=== PATIENT | male | born 1930 | race Caucasian/White ===

== ENCOUNTER 2016-12-09 17:01 | Inpatient (IN) | payer MEDICARE, OTHER ==
--- NOTE | ~2016-12-09 | HP ---
History And Physical [place] [id number] [place]. [address] NAME: KORY NAZARIO JR : 30 STATUS : ADM Sarai PAT#: [id number] AGE: 86 ADM/REG DATE : 12/09/16 MR#: [id number] REPORT SERV DATE: 12/10/16 DICTATED BY: KATHYA SOLIS DATE: 12/10/16 REPORT STATUS : Draft TRANSCRIBED BY: MODL DATE: 12/10/16 DATE OF ADMISSION: 12/09/2016 ADDENDUM: The patient was hospitalized and admitted for dementia and hypoglycemia, but I was called just before midnight on 12/09/2016 regarding increasing hypotension and tachycardia, tachypnea, and hypoxia. I went to evaluate the patient and examined. The patient was diaphoretic, in distress because of rapid heart rate and rapid respiratory rate and had a blood pressure of 73/40. On reviewing medical records, it was clear that there were many abnormalities, including a white blood cell count of 13.4 and a lactic acid of 4.9. I reviewed the chest x-ray and it showed diffuse bilateral infiltrates, but with a normal brain natriuretic peptide of 26. The patient had an active cough with short of breath. There was a possible aspiration event? I spent considerable time discussing the presentation and health with the patient's and the patient himself. The abdomen was quite soft and without significant distention. Definitely, no rebound or guarding. He had been hospitalized recently for evaluation of possible small bowel obstruction apparently. ASSESSMENT AND PLAN: I believe the patient has evidence of severe sepsis with shock secondary to pneumonia, lactic acid of 4.9, blood pressure 73/40, respiratory rate is 36, O2 saturation did drop to 86% on room air, pulse of 107, white blood cell count of 13.4. Because he was recently hospitalized, this should be considered a facility acquired pneumonia or possibly aspiration pneumonia? Therefore, I have moved the patient to a full liquid status on the telemetry floor. We will place on IV fluid boluses, broad empiric IV antibiotics, including cefepime and IV vancomycin. I discussed the case at the bedside with Dr. Brandon, critical care physician. The patient initially responded to 500 mL bolus of normal saline with a blood pressure of 92/60, corresponding to a reasonable mean arterial pressure and certainly, the patient continues to respond in terms of lactic acid of clinical status and blood pressure. Will be okay to monitor on the floor with a low threshold for transfer to the ICU. Also, it should be noted that we did discuss code status as initially I had heard the patient was a complete DNR, but it is clear that the patient is okay to be intubated if necessary and okay to have pressors for septic shock treatment if necessary, and he and his are still wondering if CPR should be given in certain situations? A total of 40 minutes was spent in critical care time evaluating the patient and management. TOYN/ISABEL Kathya Solis M.D. History And Physical [address] [address] NAME: KORY NAZARIO OFELIA MORFIN : 30 STATUS : ADM Sarai PAT#: [id number] AGE: 86 ADM/REG DATE : 12/09/16 MR#: [id number] REPORT SERV DATE: 12/10/16 DICTATED BY: KATHYA SOLIS DATE: 12/10/16 REPORT STATUS : Draft TRANSCRIBED BY: ISABEL DATE: 12/10/16 / [id number] CC: Gus Valdez M.D.
--- NOTE | ~2016-12-09 | DS ---
Discharge Summary [facility] [address] [place]. [address] NAME: KORY NAZARIO JR : 30 STATUS : DIS IN PAT#: [id number] AGE: 86 ADM/REG DATE : 12/10/16 MR#: [id number] REPORT SERV DATE: 12/16/16 DICTATED BY: VIRI ROMO DATE: 12/15/16 REPORT STATUS : Draft TRANSCRIBED BY: MODL DATE: 12/15/16 ADMISSION DATE: 12/10/2016 DISCHARGE DATE: 12/15/2016 DIAGNOSES OF DISCHARGE: 1. Bilateral pneumonia, possible aspiration, improving. 2. Hypoxic respiratory failure. 3. Encephalopathy likely toxic or metabolic. 4. Dementia. 5. 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 6. Sepsis on admission, resolved. 7. Leukocytosis on admission likely secondary to infection and reactive. No sign of progression of his myelodysplastic syndrome to acute myelogenous leukemia. 8. Myelodysplastic syndrome with anemia. 9. Recent small-bowel obstruction. 10.Weakness and debility. CONSULTANTS ON THE CASE: Dr. Amari Mckeon M.D., Oncology. PROCEDURES DONE DURING THIS HOSPITALIZATION: None. TEST DONE DURING THIS HOSPITALIZATION: Include MRI of the brain without contrast performed on 12/13/2016 showing involutional and chronic ischemic changes, but no acute findings on the MRI of the brain. His chest x-ray portable, on December 09, showed bilateral infiltrates with possible airspace process, and mild volume overload. Spine lumbar x-ray showed no acute abnormalities of the lumbar spine, just disc space narrowing at L5-S1. Repeat chest x ray, PA and lateral, shows improved of the infiltrates. The patient cardiac enzymes have remained negative at discharge. His a procalcitonin level was less than 0.05 on December 09. His BNP was 26.3, his hemoglobin A1c 6.8, lactate was 3 on admission. His white count on admission was 5.7 thousand at discharge. His UA on 12/09/2016 has been negative. His blood cultures have remained negative at discharge. HOSPITAL COURSE: This is a very pleasant 86-year-old gentleman patient of Dr. Tai, his primary care provider that he has been presenting to [facility] and admitted on 12/10/2016 after he has been found on the floor by his with apparently hypoglycemic spelling event at home. The patient according to the daughter he does have some dementia at his baseline and he has been recently discharged from [facility] according to her for a small bowel obstruction treated conservatively. The patient has been brought to [facility] Emergency Room where initial evaluation has shown some bilateral infiltrates and fairly significant leukocytosis. For further details, please see history and physical of Dr. Ryan Knott. The patient has been started on broad-spectrum antibiotics with Maxipime and vancomycin. His insulin regiment has been readjusted significantly to prevent farther hypoglycemic episodes. He has been ruled out for MO as well by serial cardiac enzymes, serial EKGs. The patient's white count has increased significantly on 12/10/2016 to 50,000 due to his history of myelodysplastic syndrome, for which he is followed by Dr. Mckeon. He has been consulted for his leukocytosis, probably leukocytosis has been Discharge Summary [address] [address] NAME: KORY NAZARIO : 30 STATUS : DIS IN PAT#: [id number] AGE: 86 ADM/REG DATE : 12/10/16 MR#: [id number] REPORT SERV DATE: 12/16/16 DICTATED BY: VIRI ROMO DATE: 12/15/16 REPORT STATUS : Draft TRANSCRIBED BY: ISABEL DATE: 12/15/16 related to his pneumonia with neutrophil predominance, and some reactive with the leukemoid reaction, but there were no evidence of any progression of disease to AML. After aggressive antibiotic treatment, aggressive pulmonary treatment, his leukocytosis started to improve significantly and actually resolved. The patient has been extremely weak and debilitated, and physical therapy eval and treat has been requested. Regarding his encephalopathy likely that has been toxic or metabolic on an underlying history of dementia, he underwent an MRI of the brain, which did show no acute events, this is encephalopathy improved slowly, but progressively and after being evaluated by Physical therapy Inpatient rehab has been recommended for the patient. The patient has been evaluated by [facility] for inpatient rehab and he has been ready for discharge for inpatient rehab at [facility] on 12/15/2016. MEDICATIONS AT DISCHARGE: Would include vitamin C 500 mg p.o. daily, Colace 100 b.i.d., iron fumarate 325 mg p.o. every morning, insulin sliding scale level 2, ketoconazole shampoo, Synthroid 25 mcg p.o. daily, melatonin 6 mg at bedtime, MiraLAX 1 packet p.o. daily, Pravachol 10 mg at bedtime, albuterol Atrovent nebulizers q.4 hours while awake, Levemir 10 units subcutaneously daily, Tylenol p.r.n., Dulcolax p.r.n., [place] 5/325 one tablet p.o. q.4 hours p.r.n., hydrocortisone cream p.r.n., montelukast p.r.n., Senokot p.r.n., Zofran p.r.n. Also Lasix 20-40 mg p.o. daily p.r.n. for fluid retention and Aranesp as administered by Dr. Mckeon every 90 days and Augmentin 875 mg p.o. b.i.d. for seven more days. The patient has been advised to follow up with his primary care provider, Dr. Tai, his PCP in 1 week after discharge and followup appointment with Dr. Mckeon, [facility] as scheduled, that has been discussed extensively with the patient as well as the patient's . All the questions have been answered in full. I have spent more than 35 minutes at discharging patient medication reconciliation, discharge summary, discharge instructions, written prescriptions as well. CF/MODL Viri Romo M.D. / [id number] CC: Harley Issa M.D.
--- NOTE | ~2016-12-09 | HP ---
History And Physical [place] [id number] [place]. [address] NAME: KORY NAZARIO JR : 30 STATUS : ADM Sarai PAT#: [id number] AGE: 86 ADM/REG DATE : 12/09/16 MR#: [id number] REPORT SERV DATE: 12/10/16 DICTATED BY: RYAN JON DATE: 12/09/16 REPORT STATUS : Draft TRANSCRIBED BY: ISABEL DATE: 12/09/16 DATE OF ADMISSION: 12/09/2016 REASON FOR ADMISSION: Hypoglycemic spelling following home. HISTORY OF PRESENT ILLNESS: This is an 86-year-old white male, who was found on the floor by his , unable to help himself, he was given honey and condensed milk to try bring his blood sugar up. His who appears to have some degree of dementia, is certainly a very talkative nature and anxiety, brought into the emergency room here his blood sugar was normal when he arrived. Chest x-ray showed some perihilar edema and what appears to be fluid or fibrosis in a minor fissure on the right side. He is somewhat hypoxemic now and Lasix has been given prior to my arrival. Dr. Alexandre treated him initially. His evaluation had slightly elevated WBC so he was given some Levaquin IV. He has been having a cough recently. He has a nonproductive cough but no fever, chills, or night sweats. His says he has some back pain he denies this. She says he has some hip pain he denies this. PAST MEDICAL HISTORY: He was in [facility] for small-bowel obstruction in the recent past. His says he was discharged home too quickly. His primary care doctor is Dr. Tai. His home medicines are being analyzed from this acutest history that was given by his . He is on the following medications ascorbic acid 500 mg p.o. q.a.m., aspirin three 81 mg or 243 mg 1 a day, furosemide 20 mg p.o. daily, insulin by sliding scale NovoLog, Levemir 25 units in the morning and 22 units at night I think this may be over insulinizing him. I am going to cut back to 20 units in the morning and 12 units at bedtime. He is on ketoconazole cream for rash, levothyroxine 25 mcg before breakfast, Singulair 10 mg p.o. daily, pravastatin 10 mg at bedtime, Linzess 1 tab before breakfast, clobetasol ointment applied to the scalp weekly, ketoconazole shampoo twice a week and leukemia injection from Dr. Mckeon to help him prevent leukemia from developing. thinks he may have multiple myeloma diagnosed by Dr. Mckeon previously. SOCIAL HISTORY: He was in the [employer] for 9 years and then worked for [employer] most of professional life. He moved up here from [place], [place] in 1975 and has been citizen of [place] ever since that time. He attends [employer]. He does not smoke cigarettes or drink any alcohol to speak of. FAMILY HISTORY: His mother and father both of old age. REVIEW OF SYSTEMS: He has a little bit of chest pain on the right anterior chest and the right lateral chest. He had a fall and the chest x-ray reviewed for evidence of fractured ribs which were not identified. History And Physical [address] [address] NAME: KORY NAZARIO JR : 30 STATUS : ADM Sarai PAT#: [id number] AGE: 86 ADM/REG DATE : 12/09/16 MR#: [id number] REPORT SERV DATE: 12/10/16 DICTATED BY: RYAN JON DATE: 12/09/16 REPORT STATUS : Draft TRANSCRIBED BY: ISABEL DATE: 12/09/16 PHYSICAL EXAMINATION: VITAL SIGNS: His blood pressure 120/53 with a heart rate of 88, respiratory rate 24, afebrile. HEENT: EOMI. Sclerae clear. Conjunctivae pink. NECK: No bruit, without any JVD. CHEST: Clear to A and P. HEART: Regular S1, S2 without murmur, gallop, or click. ABDOMEN: Soft, nontender. Bowel sounds positive. No HSM. No masses felt. EXTREMITIES: Have no edema. NEUROLOGIC: The patient is able to stand unaided. He is somewhat unbalanced. He says he feels cold right now. He does have an abrasion on the posterior apical left shoulder and on the mid back a small abrasion. 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 He is alert and oriented to place and time. His speech is cogent and goal directed. He is minimizing his complaints. SKIN: Numerous ecchymoses on the elbows and forearms. His skin is rather thin. LYMPHATICS: There is no adenopathy palpable. LABORATORY DATA: Chest x-ray shows bilateral perihilar edema with fluid in the minor fissure on the right side and some atelectasis of the bases. We will repeat in the morning. His lactate of 4.9, his hemoglobin 11.8, hematocrit 39.0, white count 13.4, platelets were 203,000. The PTT was 31. INR 1.1. Urinalysis shows 0 white cells per high-powered field, specific gravity 1.021 and pH of 5. His comprehensive metabolic profile showed a procalcitonin less than 0.05, potassium 3.7, sodium 136, creatinine 0.99, BUN 21. CPK was 185. Liver tests were normal. His BNP was only 26.3. No troponin was ordered. ASSESSMENT: 1. 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 Initially type 2 now insulin dependent for the last 10 or 15 years, initially followed by Dr. Nathan and Dr. Kimani Pratt. I suspect he is over insulinized. His says that he is having significant blood sugar reactions and he does not respond well to know when they are going to happen. I suggested two possible solutions: Either we get a continuous glucose monitor alarm functions or we decrease the amount of insulin that he takes. I suggested a permissive control with blood sugars in the 170s to 200 range. It may be more safe for him to avoid the falling and hypoglycemic spells. 2. Hypoglycemic spell now covering. The patient is cold and shivering. Now blood sugar was normal after he was given honey and condensed milk by his . 3. Falling. He is little unsteady on his feet. We will watch for tomorrow and see how he gets around. 4. Dementia. 5. Possible pulmonary edema. We will check a troponin 1 level now and repeat the chest x- ray in the morning. 6. History of small-bowel obstruction at [facility] recently. 7. says he has had some low back pain and some hip pain. I am going to go ahead and check x-ray of his back as he denies the hip pain specifically, but does admit he has had some back pain. He also had anterior right chest pain so the troponin level would History And Physical [place] [id number] [place]. [address] NAME: KORY NAZARIO JR : 30 STATUS : ADM Sarai PAT#: [id number] AGE: 86 ADM/REG DATE : 12/09/16 MR#: [id number] REPORT SERV DATE: 12/10/16 DICTATED BY: RYAN JON DATE: 12/09/16 REPORT STATUS : Draft TRANSCRIBED BY: MODSloane DATE: 12/09/16 be of value for this as well. PLAN: I offered discharge home tonight is very anxious. is also demented I believe she is somewhat unrestrained in her anxiety and demands for treatment. We can observe overnight likely, however, in the morning we will check a chest x-ray and oxygen saturation. His oxygen saturations are low 85% on room air at time of examination. I am going to discontinue the Levaquin that was given initially. Repeat the chest x-ray, watch the blood sugars, identify the home medications and alter. Observation watch sugar, check back x-ray, and repeat the chest x-rays to be sure it is improving. GENA/ISABEL Ryan Jon M.D. / [id number] CC: Fredy Clay Jr, MD Dianne Roland, M.D. Bill Tucker M.D. Amari Mckeon M.D. Layton Tai M.D.
[2016-12-09 16:43] LABS: INTERNATIONAL NORMAL RATI 1.1 UNITS (-); PARTIAL THROMBO TIME 31.2 SEC (22.5-37.2)
[2016-12-09 16:44] LABS: PROTIME (NOT ORD) 13.9 SEC (12.0-14.5)
[2016-12-09 16:49] LABS: A/G RATIO 1.1 (0.7-1.9); ALBUMIN 3.9 G/DL (3.5-5.0); ALKALINE PHOSPHATASE 94 U/L (45-117); BUN (BLOOD UREA NITROGEN) 21 MG/DL (6-23); CALCIUM, SERUM 9.4 MG/DL (8.5-10.4); CHLORIDE, SERUM 99 MMOL/L (96-112); CO2 (CARBON DIOXIDE) 28 MMOL/L (24-34); CREATININE 0.99 MG/DL (0.70-1.30); GFR AFRICAN AMERICAN 80 ML/MIN (>=60); GFR NON AFRICAN AMERICAN 69 ML/MIN (>=60); GLOBULIN 3.5 G/DL (2.5-4.1); GLUCOSE, SERUM 190 MG/DL (60-99); POTASSIUM, SERUM 3.7 MMOL/L (3.5-5.3); RBC DISTRIBUTION WIDTH 20.2 % (12.0-16.0); SGPT(ALT) 21 U/L (5-65); SODIUM, SERUM 136 MMOL/L (135-148); TOTAL BILIRUBIN 0.4 MG/DL (0-1.2); TOTAL PROTEIN 7.4 G/DL (6.0-8.5)
[2016-12-09 16:50] LABS: ER CBC TAT 0 Hrs 22 Mins; HEMOGLOBIN 11.8 g/dL (13.6-17.8); MANUAL DIFF YES %; MEAN CORPUS HGB CONC 30.3 g/dL (32.0-36.0); MEAN CORPUSCULAR HEMOGLOB 29.1 pg (26.0-34.0); MEAN CORPUSCULAR VOLUME 96.3 fL (80-100); PLATELET COUNT 203 10/3/uL (150-400); RED CELL COUNT 4.05 10/6/uL (4.7-6.1); SGOT(AST) 34 U/L (5-40); WHITE BLOOD CELLS 13.4 10/3/uL (4.5-10.5)
[2016-12-09 16:52] LABS: LACTATE 4.9 MMOL/L (0.3-2.4)
[~2016-12-09 17:01] MED LIST: ARICEPT5 PO; DENIES HOME MEDS; HEMOCYTE324 MG PO; LEVEMIR SC; LEVOTHYROXIN25 MCG PO; MICARDIS40; MICARDIS40 PO; NOVOLOG SC; PRAV10 PO; SEROQUEL25 PO
[2016-12-09 17:18] LABS: BAND NEUTROPHILS 3 %; ER DIFF TAT 0 Hrs 50 Mins; LYMPHOCYTES 7 %; LYMPHOCYTES ABSOLUTE (CALC) 0.94 10/3/uL (0.67-4.30); MONOCYTES 15 %; MONOCYTES ABSOLUTE (CALC) 2.01 10/3/uL (0.21-1.20); NEUTROPHILS ABSOLUTE (CALC) 10.45 10/3/uL (2.02-8.40); SEGMENTED NEUTROPHIL (0) 75 %; TOTAL NUCLEATED CELLS 100
[2016-12-09 17:23] LABS: ANISOCYTOSIS 1+ (5-10/OIF) (0-5/OIF); PLATELET ESTIMATE ADQ (ADEQUATE)
[2016-12-09 17:25] LABS: PROCALCITONIN <0.05 ng/mL (<0.5)
[2016-12-09 18:08] LABS: WBC (NOT ORDERED) (RFLEX) 0 (0-5)
[2016-12-09 18:19] LABS: ASCORBIC ACID (UR NOT ORDER) 40 (NEG); BILIRUBIN, URINE NEGATIVE (NEG); ER URINALYSIS TAT 0 Hrs 13 Mins; KETONE, URINE NEGATIVE (NEG); LEUKOCYTE ESTERASE(NOT OR NEG (NEG); NITRITE (URINE) NEG (NEG)
[2016-12-09 19:10] LABS: CPK 185 U/L (0-200)
[2016-12-09] MEDS ORDERED: PRAV10 PO (19:41)
[2016-12-09] MEDS ORDERED: HEMOCYTE324 MG PO (19:41)
[2016-12-09] MEDS ORDERED: LINZESS PO (19:41)
[2016-12-09] MEDS ORDERED: LEVEMFLXPN SC ×2 (19:41)
[2016-12-09] MEDS ORDERED: NOVOPEN SC (19:41)
[2016-12-09] MEDS ORDERED: SYN.025B PO (19:42)
[2016-12-09] MEDS ORDERED: NIZORALCRM TOP (19:42)
[2016-12-09] MEDS ORDERED: L20 PO (19:42)
[2016-12-09] MEDS ORDERED: VITC500 PO (19:42)
[2016-12-09] MEDS ORDERED: CLOBETASOL TOP (19:43)
[2016-12-09] MEDS ORDERED: SINGULAIR1 PO (19:44)
[2016-12-09] MEDS ORDERED: ASAB PO (19:44)
[2016-12-09] MEDS ORDERED: KETOCONAZOLE SHAMPOO TOP (19:44)
[2016-12-09] MEDS ORDERED: Aranesp IV (19:45)
[2016-12-09 20:43] LABS: TROPONIN I <0.02 NG/ML (<0.05)
[2016-12-10 06:11] LABS: HEMOGLOBIN 9.7 g/dL (13.6-17.8); MEAN CORPUS HGB CONC 31.1 g/dL (32.0-36.0); MEAN CORPUSCULAR HEMOGLOB 29.9 pg (26.0-34.0); MEAN CORPUSCULAR VOLUME 96.3 fL (80-100); PLATELET COUNT 188 10/3/uL (150-400); RBC DISTRIBUTION WIDTH 20.4 % (12.0-16.0); RED CELL COUNT 3.24 10/6/uL (4.7-6.1)
[2016-12-10 06:12] LABS: HEMATOCRIT 31.2 % (40.0-51.0); WHITE BLOOD CELLS 50.7 10/3/uL (4.5-10.5)
[2016-12-10 06:14] LABS: MANUAL DIFF YES %
[2016-12-10 06:36] LABS: BAND NEUTROPHILS 7 %; LYMPHOCYTES 1 %; MONOCYTES 25 %; MONOCYTES ABSOLUTE (CALC) 12.68 10/3/uL (0.21-1.20); NEUTROPHILS ABSOLUTE (CALC) 38.03 10/3/uL (2.02-8.40); SEGMENTED NEUTROPHIL (0) 67 %; TOTAL NUCLEATED CELLS 100
[2016-12-10 06:37] LABS: ANISOCYTOSIS 1+ (5-10/OIF) (0-5/OIF); PLATELET ESTIMATE ADQ (ADEQUATE)
[2016-12-10 07:14] LABS: CHLORIDE, SERUM 105 MMOL/L (96-112); CO2 (CARBON DIOXIDE) 25 MMOL/L (24-34); CREATININE 0.98 MG/DL (0.70-1.30); GFR AFRICAN AMERICAN 81 ML/MIN (>=60); GFR NON AFRICAN AMERICAN 70 ML/MIN (>=60); GLUCOSE, SERUM 155 MG/DL (60-99); POTASSIUM, SERUM 4.2 MMOL/L (3.5-5.3); SODIUM, SERUM 138 MMOL/L (135-148); TROPONIN I <0.02 NG/ML (<0.05)
[2016-12-10 07:15] LABS: BUN (BLOOD UREA NITROGEN) 27 MG/DL (6-23); CALCIUM, SERUM 8.3 MG/DL (8.5-10.4)
[2016-12-11 06:22] LABS: HEMATOCRIT 29.6 % (40.0-51.0); HEMOGLOBIN 9.4 g/dL (13.6-17.8); MEAN CORPUS HGB CONC 31.8 g/dL (32.0-36.0); MEAN CORPUSCULAR HEMOGLOB 30.3 pg (26.0-34.0); MEAN CORPUSCULAR VOLUME 95.5 fL (80-100); PLATELET COUNT 160 10/3/uL (150-400); RBC DISTRIBUTION WIDTH 20.2 % (12.0-16.0)
[2016-12-11 06:23] LABS: WHITE BLOOD CELLS 28.9 10/3/uL (4.5-10.5)
[2016-12-11 06:24] LABS: MANUAL DIFF YES %
[2016-12-11 06:25] LABS: A/G RATIO 0.9 (0.7-1.9); ALBUMIN 2.8 G/DL (3.5-5.0); ALKALINE PHOSPHATASE 70 U/L (45-117); BUN (BLOOD UREA NITROGEN) 24 MG/DL (6-23); CALCIUM, SERUM 8.4 MG/DL (8.5-10.4); CHLORIDE, SERUM 108 MMOL/L (96-112); CO2 (CARBON DIOXIDE) 23 MMOL/L (24-34); CREATININE 0.76 MG/DL (0.70-1.30); GFR AFRICAN AMERICAN 96 ML/MIN (>=60); GFR NON AFRICAN AMERICAN 83 ML/MIN (>=60); GLUCOSE, SERUM 138 MG/DL (60-99); POTASSIUM, SERUM 3.9 MMOL/L (3.5-5.3); SGOT(AST) 35 U/L (5-40); SGPT(ALT) 21 U/L (5-65); SODIUM, SERUM 138 MMOL/L (135-148); TOTAL BILIRUBIN 0.6 MG/DL (0-1.2); TOTAL PROTEIN 5.8 G/DL (6.0-8.5)
[2016-12-11 06:44] LABS: ANISOCYTOSIS 1+ (5-10/OIF) (0-5/OIF); LYMPHOCYTES 6 %; LYMPHOCYTES ABSOLUTE (CALC) 1.73 10/3/uL (0.67-4.30); MONOCYTES 10 %; MONOCYTES ABSOLUTE (CALC) 2.89 10/3/uL (0.21-1.20); NEUTROPHILS ABSOLUTE (CALC) 24.28 10/3/uL (2.02-8.40); PLATELET ESTIMATE ADQ (ADEQUATE); SEGMENTED NEUTROPHIL (0) 84 %; TOTAL NUCLEATED CELLS 100
[2016-12-11 06:59] LABS: PROCALCITONIN 1.85 ng/mL (<0.5)
[2016-12-12 04:57] LABS: HEMATOCRIT 26.7 % (40.0-51.0); HEMOGLOBIN 8.6 g/dL (13.6-17.8); MEAN CORPUS HGB CONC 32.2 g/dL (32.0-36.0); PLATELET COUNT 138 10/3/uL (150-400); RBC DISTRIBUTION WIDTH 19.7 % (12.0-16.0); RED CELL COUNT 2.87 10/6/uL (4.7-6.1); WHITE BLOOD CELLS 11.6 10/3/uL (4.5-10.5)
[2016-12-12 04:58] LABS: MANUAL DIFF YES %
[2016-12-12 05:09] LABS: CALCIUM, SERUM 8.2 MG/DL (8.5-10.4); CHLORIDE, SERUM 104 MMOL/L (96-112); CO2 (CARBON DIOXIDE) 25 MMOL/L (24-34); CREATININE 0.65 MG/DL (0.70-1.30); GFR AFRICAN AMERICAN 102 ML/MIN (>=60); GFR NON AFRICAN AMERICAN 88 ML/MIN (>=60); POTASSIUM, SERUM 3.8 MMOL/L (3.5-5.3); SODIUM, SERUM 136 MMOL/L (135-148)
[2016-12-12 05:11] LABS: BUN (BLOOD UREA NITROGEN) 17 MG/DL (6-23)
[2016-12-12 05:12] LABS: GLUCOSE, SERUM 276 MG/DL (60-99)
[2016-12-12 06:14] LABS: BASOPHILS 2 %; BASOPHILS ABSOLUTE (CALC) 0.23 10/3/uL (0.0-0.16); EOSINOPHILS 1 %; EOSINOPHILS ABSOLUTE (CALC) 0.12 10/3/uL (0.0-0.53); LYMPHOCYTES 6 %; MONOCYTES 24 %; MONOCYTES ABSOLUTE (CALC) 2.78 10/3/uL (0.21-1.20); NEUTROPHILS ABSOLUTE (CALC) 7.77 10/3/uL (2.02-8.40); SEGMENTED NEUTROPHIL (0) 67 %; TOTAL NUCLEATED CELLS 100
[2016-12-12 06:15] LABS: ANISOCYTOSIS 1+ (5-10/OIF) (0-5/OIF); PLATELET ESTIMATE SLT DEC (ADEQUATE)
[2016-12-13 13:18] LABS: BASOPHILS 0.6 %; BASOPHILS ABSOLUTE 0.04 10/3/uL (0.0-0.16); EOSINOPHILS 1.6 %; IMMATURE GRANULOCYTES 0.2 %; IMMATURE GRANULOCYTES ABSOLUTE 0.01 10/3/uL (0.0-0.11); LYMPHOCYTES 19.2 %; LYMPHOCYTES ABSOLUTE 1.21 10/3/uL (0.67-4.30); MEAN CORPUS HGB CONC 30.6 g/dL (32.0-36.0); MEAN CORPUSCULAR HEMOGLOB 28.9 pg (26.0-34.0); MEAN CORPUSCULAR VOLUME 94.5 fL (80-100); MONOCYTES 19.2 %; MONOCYTES ABSOLUTE 1.21 10/3/uL (0.21-1.20); NEUTROPHILS 59.2 %; NEUTROPHILS ABSOLUTE 3.72 10/3/uL (2.02-8.40); PLATELET COUNT 132 10/3/uL (150-400); RBC DISTRIBUTION WIDTH 19.5 % (12.0-16.0); RED CELL COUNT 3.11 10/6/uL (4.7-6.1)
[2016-12-13 13:19] LABS: HEMATOCRIT 29.4 % (40.0-51.0); MANUAL DIFF NO %; WHITE BLOOD CELLS 6.3 10/3/uL (4.5-10.5)
[2016-12-13 13:25] LABS: BUN (BLOOD UREA NITROGEN) 11 MG/DL (6-23); CALCIUM, SERUM 8.9 MG/DL (8.5-10.4); CHLORIDE, SERUM 103 MMOL/L (96-112); CO2 (CARBON DIOXIDE) 28 MMOL/L (24-34); CREATININE 0.77 MG/DL (0.70-1.30); GFR AFRICAN AMERICAN 95 ML/MIN (>=60); GFR NON AFRICAN AMERICAN 82 ML/MIN (>=60); GLUCOSE, SERUM 341 MG/DL (60-99); POTASSIUM, SERUM 3.4 MMOL/L (3.5-5.3); SODIUM, SERUM 137 MMOL/L (135-148)
[2016-12-13 13:33] LABS: ANISOCYTOSIS 1+ (5-10/OIF) (0-5/OIF); HYPOCHROMIA 1+ (3-10/OIF) (0-2/OIF); PLATELET ESTIMATE SLT DEC (ADEQUATE)
[2016-12-13 13:34] LABS: MICROCYTES 1+ (5-10/OIF) (0-5/OIF)
[2016-12-14 05:11] LABS: HEMATOCRIT 29.6 % (40.0-51.0); HEMOGLOBIN 9.3 g/dL (13.6-17.8); MEAN CORPUS HGB CONC 31.4 g/dL (32.0-36.0); MEAN CORPUSCULAR HEMOGLOB 29.4 pg (26.0-34.0); MEAN CORPUSCULAR VOLUME 93.7 fL (80-100); PLATELET COUNT 142 10/3/uL (150-400); RBC DISTRIBUTION WIDTH 18.9 % (12.0-16.0); RED CELL COUNT 3.16 10/6/uL (4.7-6.1); WHITE BLOOD CELLS 6.9 10/3/uL (4.5-10.5)
[2016-12-14 05:12] LABS: MANUAL DIFF YES %
[2016-12-14 05:23] LABS: BUN (BLOOD UREA NITROGEN) 13 MG/DL (6-23); CALCIUM, SERUM 9.3 MG/DL (8.5-10.4); CHLORIDE, SERUM 102 MMOL/L (96-112); CO2 (CARBON DIOXIDE) 32 MMOL/L (24-34); CREATININE 0.59 MG/DL (0.70-1.30); GFR AFRICAN AMERICAN 106 ML/MIN (>=60); GFR NON AFRICAN AMERICAN 92 ML/MIN (>=60); SODIUM, SERUM 140 MMOL/L (135-148)
[2016-12-14 05:31] LABS: GLUCOSE, SERUM 139 MG/DL (60-99)
[2016-12-14 05:35] LABS: ANISOCYTOSIS 1+ (5-10/OIF) (0-5/OIF); BAND NEUTROPHILS 2 %; HYPOCHROMIA 1+ (3-10/OIF) (0-2/OIF); LYMPHOCYTES 16 %; MONOCYTES 16 %; NEUTROPHILS ABSOLUTE (CALC) 4.69 10/3/uL (2.02-8.40); PLATELET ESTIMATE SLT DEC (ADEQUATE); SEGMENTED NEUTROPHIL (0) 66 %; TOTAL NUCLEATED CELLS 100
[2016-12-14 06:10] LABS: PROCALCITONIN 0.33 ng/mL (<0.5)
[2016-12-15 05:48] LABS: CALCIUM, SERUM 9.4 MG/DL (8.5-10.4); CHLORIDE, SERUM 101 MMOL/L (96-112); CO2 (CARBON DIOXIDE) 33 MMOL/L (24-34); CREATININE 0.58 MG/DL (0.70-1.30); GFR AFRICAN AMERICAN 107 ML/MIN (>=60); GFR NON AFRICAN AMERICAN 92 ML/MIN (>=60); POTASSIUM, SERUM 3.6 MMOL/L (3.5-5.3); SODIUM, SERUM 141 MMOL/L (135-148)
[2016-12-15 05:49] LABS: BUN (BLOOD UREA NITROGEN) 17 MG/DL (6-23); GLUCOSE, SERUM 51 MG/DL (60-99)
[2016-12-15 06:00] LABS: HEMOGLOBIN 9.4 g/dL (13.6-17.8); MEAN CORPUS HGB CONC 32.4 g/dL (32.0-36.0); MEAN CORPUSCULAR HEMOGLOB 29.7 pg (26.0-34.0); MEAN CORPUSCULAR VOLUME 91.8 fL (80-100); MEAN PLATELET VOLUME 11.6 fL (9.2-13.0); RBC DISTRIBUTION WIDTH 19.2 % (12.0-16.0); RED CELL COUNT 3.16 10/6/uL (4.7-6.1); WHITE BLOOD CELLS 5.7 10/3/uL (4.5-10.5)
[2016-12-15 06:03] LABS: MANUAL DIFF YES %; PLATELET COUNT 186 10/3/uL (150-400)
[2016-12-15 06:33] LABS: ANISOCYTOSIS 1+ (5-10/OIF) (0-5/OIF); BASOPHILS 1 %; BASOPHILS ABSOLUTE (CALC) 0.06 10/3/uL (0.0-0.16); EOSINOPHILS 2 %; EOSINOPHILS ABSOLUTE (CALC) 0.11 10/3/uL (0.0-0.53); LYMPHOCYTES 24 %; LYMPHOCYTES ABSOLUTE (CALC) 1.37 10/3/uL (0.67-4.30); MONOCYTES 14 %; NEUTROPHILS ABSOLUTE (CALC) 3.36 10/3/uL (2.02-8.40); PLATELET ESTIMATE ADQ (ADEQUATE); POLYCHROMASIA 1+ (2-5/OIF) (0-1/OIF); SEGMENTED NEUTROPHIL (0) 59 %; TOTAL NUCLEATED CELLS 100
== END 2016-12-15 15:46 | DRG 871 ==
LOC: ER 17:01 → CDU1 20:15 → CDU2 20:41 → 2SO 12-10 00:54
PROVIDERS: Emergency Medicine; Hospitalist; Internal Medicine
DX: A41.9 Sepsis, unspecified organism (principal); R65.21 Severe sepsis with septic shock; J69.0 Pneumonitis due to inhalation of food and vomit; J96.01 Acute respiratory failure with hypoxia; G93.41 Metabolic encephalopathy; F03.90 Unspecified dementia, unspecified severity, without behavioral disturbance, psychotic disturbance, mood disturbance, and anxiety; Z66 Do not resuscitate; E11.649 Type 2 diabetes mellitus with hypoglycemia without coma; E11.65 Type 2 diabetes mellitus with hyperglycemia; Z79.84 Long term (current) use of oral hypoglycemic drugs; Z79.4 Long term (current) use of insulin; Z79.899 Other long term (current) drug therapy; D46.9 Myelodysplastic syndrome, unspecified
CPT/HCPCS: 70551; 71010; 71020; 72100; 80048; 80053; 81001; 82550; 82962; 83036; 83605; 83735; 83880; 84145; 84484; 85025; 85610; 85730; 87040; 87205; 93005; 94640; 97110-GP; 97116-GP; 97161-GP; 99291; A9270-GY; G8978-CJ-GP; G8979-CI-GP; J0692; J1610; J1940; J1956; J2405; J3370